=== PATIENT | male | born 1935 | race African-American/Black ===

== ENCOUNTER 2016-06-30 15:06 | Inpatient (IN) | payer OTHER, MEDICARE ==
[2016-06-30] VITALS (8 sets, daily range): BP systolic 126–168; BP diastolic 70–99; PULSE 84–116; RESP 16–22; TEMP 96.2–98.1; O2SAT 87–100
[~2016-06-30] VITALS: Ht 177.8 cm; Wt 57.0 kg
[~2016-06-30 15:06] MED LIST: ALBU8I INH; AZIT250T43 PO; BRIM0.2S LEFT EYE; CARV12.52 PO; GLUCTAB PO; LISI-360 PO; PRAV10 PO; PRED20 PO; PROVENTIL HFA INH; TIMO1SOL6 LEFT EYE; XALA0.00 LEFT EYE
[2016-06-30] MEDS ORDERED: SODIUM CHLORIDE 0.9% FLUSH 5 ML FLUSH IVF PRN ×2 (15:30→19:00)
[2016-06-30] MEDS ORDERED: methylPREDNISolone SOD SUCC 125 MG/2 ML VIAL IVP ONE (15:30)
--- NOTE | 2016-06-30 15:32 | PD ---
HPI . Shortness of breath Chief Complaint: Respiratory Distress Time Seen by Provider: 15:22 Travel History International Travel<30 days: No Contact w/Intl Traveler<30days: No History of Present Illness HPI The patient presents with increasing shortness of breath over the course of the last couple days. He has been using his Combivent inhaler and a nebulizer machine with no relief of his symptoms. He states he has been prescribed prednisone in the past but is not currently taking it. He admits that he has had swelling of his ankles. He is not running fever. He does not have a productive cough. He has not been having chest pain. [facility] Past Medical History COPD: Yes Diabetes: Yes Musculoskeletal: Yes (HERNIATED DISK L1) Past Surgical History Cholecystectomy: Yes Tonsillectomy: Yes Social History Alcohol Use: No Tobacco Use: Yes (1/2-1 PPD) Substance Use: No Allergies-Medications (Allergen,Severity, Reaction): Uncoded Allergies: POISON FANNY (Allergy, Mild, 02/07/08) Reported Meds & Prescriptions Reported Meds & Active Scripts Active Reported Xalatan Opth Drops (Latanoprost) 0.005% Drops 1 Drop LEFT EYE HS Timolol Opth Drops 0.5 % Soln 1 Drop LEFT EYE DAILY Metformin (Metformin HCl) 1,000 Mg Tab 1,000 Mg PO TID With a meal Lisinopril 10 Mg Tab 10 Mg PO DAILY Carvedilol 12.5 Mg Tab 12.5 Mg PO BID Combigan Opth Drops (Brimonidine-Timolol Opth Drops) 0.2-0.5% Soln 1 Drop LEFT EYE DAILY Proair Hfa 8.5 GM Inh (Albuterol Sulfate) 90 Mcg/Act Aer 2 Puff INH Q6H PRN 108 mcg/actuation Review of Systems Except as stated in HPI: all other systems reviewed are Neg General / Constitutional: No: Fever, Chills Cardiovascular: No: Chest Pain or Discomfort Respiratory: Positive: Shortness of Breath Musculoskeletal: Positive: Edema Physical Exam Narrative GENERAL: Pleasant, elderly man who is in obvious respiratory distress. SKIN: Warm and dry. HEAD: Atraumatic. Normocephalic. EYES: Pupils equal and round. ENT: No nasal bleeding or discharge. Mucous membranes pink and moist. NECK: Trachea midline. Positive JVD. CARDIOVASCULAR: Regular rate and rhythm. Heart sounds are normal. RESPIRATORY: He has retractions and use of accessory muscles. His lungs sound clear but diminished throughout. GASTROINTESTINAL: Abdomen soft, non-tender, nondistended. MUSCULOSKELETAL: No obvious deformities. 4+ pretibial pitting edema NEUROLOGICAL: Awake and alert. No obvious cranial nerve deficits. Motor grossly within normal limits. Normal speech. PSYCHIATRIC: Appropriate mood and affect; insight and judgment normal. Data Data Last Documented VS Vital Signs Date Time Temp Pulse Resp B/P Pulse Ox O2 Delivery O2 Flow Rate FiO2 06/30/16 16:36 102 16 126/80 99 Nasal Cannula 2 06/30/16 15:08 98.1 Orders Complete Blood Count With Diff (06/30/16 15:28) Comprehensive Metabolic Panel (06/30/16 15:28) B-Type Natriuretic Peptide (06/30/16 15:28) Ckmb (Isoenzyme) Profile (06/30/16 15:28) Troponin I (06/30/16 15:28) Iv Access Insert/Monitor (06/30/16 15:28) Electrocardiogram (06/30/16 15:28) Ecg Monitoring (06/30/16 15:28) Oximetry (06/30/16 15:28) Oxygen Administration (06/30/16 15:28) Chest, Single Ap (06/30/16 15:28) Sodium Chloride 0.9% Flush (Ns Flush) (06/30/16 15:30) Methylprednisolone So Succ Inj (Solumedr (06/30/16 15:30) Albuterol-Ipratropium Neb (Duoneb Neb) (06/30/16 15:30) CKMB (06/30/16 15:50) CKMB% (06/30/16 15:50) Furosemide Inj (Lasix Inj) (06/30/16 17:30) Aspirin (Aspirin) (06/30/16 17:30) Nitroglycerin 2% Oint (Nitroglycerin 2% (06/30/16 17:30) Labs Laboratory Tests Test 06/30/16 15:50 White Blood Count 9.1 TH/MM3 Red Blood Count 4.81 MIL/MM3 Hemoglobin 14.9 GM/DL Hematocrit 45.3 % Mean Corpuscular Volume 94.3 FL Mean Corpuscular Hemoglobin 30.9 PG Mean Corpuscular Hemoglobin 32.8 % Concent Red Cell Distribution Width 14.4 % Platelet Count 115 TH/MM3 Mean Platelet Volume 11.4 FL Neutrophils (%) (Auto) 67.7 % Lymphocytes (%) (Auto) 24.6 % Monocytes (%) (Auto) 6.2 % Eosinophils (%) (Auto) 1.0 % Basophils (%) (Auto) 0.5 % Neutrophils # (Auto) 6.2 TH/MM3 Lymphocytes # (Auto) 2.2 TH/MM3 Monocytes # (Auto) 0.6 TH/MM3 Eosinophils # (Auto) 0.1 TH/MM3 Basophils # (Auto) 0.0 TH/MM3 CBC Comment DIFF FINAL Differential Comment Sodium Level 140 MEQ/L Potassium Level 4.3 MEQ/L Chloride Level 102 MEQ/L Carbon Dioxide Level 31.0 MEQ/L Anion Gap 7 MEQ/L Blood Urea Nitrogen 23 MG/DL Creatinine 1.25 MG/DL Estimat Glomerular Filtration 68 ML/MIN Rate Random Glucose 270 MG/DL Calcium Level 9.0 MG/DL Total Bilirubin 0.3 MG/DL Aspartate Amino Transf 35 U/L (AST/SGOT) Alanine Aminotransferase 61 U/L (ALT/SGPT) Alkaline Phosphatase 118 U/L Total Creatine Kinase 106 U/L Creatine Kinase MB 4.1 NG/ML Troponin I 0.03 NG/ML B-Type Natriuretic Peptide 846 PG/ML Total Protein 6.3 GM/DL Albumin 3.0 GM/DL [facility] Medical Decision Making Medical Screen Exam Complete: Yes Emergency Medical Condition: Yes Medical Record Reviewed: Yes Interpretation(s) EKG shows a sinus rhythm. He has some flattening of the T waves in the inferior leads and some nonspecific STT wave changes in the anterior leads. These changes are new compared to his most recent EKG which was done 2 years ago. Differential Diagnosis Differential diagnosis of dyspnea includes but is not limited to congestive heart failure, pneumonia, wheezing, pneumothorax, pulmonary embolism Narrative Course Patient presents for treatment of increasing dyspnea over the course the last couple days. I will give him steroids and nebs while awaiting his evaluation for CHF. Chest x-ray shows changes compatible with COPD but no infiltrate. The chest x- ray was independently viewed by me. CBC & BMP Diagram 06/30/16 15:50 Initial cardiac enzymes are negative. BNP is >800. 5:27 PM Patient is on oxygen as sats are in the upper 90s. However, he is still having retractions and use of accessory muscles. He now has audible rales. Critical Care Narrative Aggregate critical care time was 45 minutes. Time to perform other separately billable procedures was not included in the critical care time. My time did not include minutes spent treating any other patients simultaneously or on activities that did not directly contribute to the patient's treatment. The services I provided to this patient were to treat and/or prevent clinically significant deterioration due to respiratory distress and hypoxia. I provided critical care services requiring my management, as noted below: Chart data review, documentation time, medication orders and management, vital sign assessments/reviewing monitor data, ordering and reviewing lab tests, ordering and interpreting/reviewing x-rays and diagnostic studies, care of the patient and discussion of the patient with the admitting physicians Physician Communication Physician Communication Dr. Nuñez will admit. Diagnosis Primary Impression: Dyspnea Qualified Code: R06.00 - Dyspnea, unspecified type Additional Impression: CHF (congestive heart failure) Qualified Code: I50.9 - Acute congestive heart failure, unspecified congestive heart failure type Admitting Information Admitting Physician Requests: Admit Condition: Zuleyka Dickerson MD Jun 30, 2016 15:32
[2016-06-30 16:01] LABS: AUTOMATED NEUTROPHIL # 6.2 TH/MM3 (1.8-7.7); BASOPHIL % 0.5 % (0.0-2.0); EOSINOPHIL # 0.1 TH/MM3 (0-0.4); HEMATOCRIT 45.3 % (39.0-51.0); HEMO FLAGS DIFF FINAL; LYMPH % 24.6 % (9.0-44.0); LYMPHOCYTE # 2.2 TH/MM3 (1.0-4.8); MEAN CELL VOLUME 94.3 FL (80.0-100.0); MEAN CORPUSCULAR HEMOGLOBIN 30.9 PG (27.0-34.0); MEAN CORPUSCULAR HGB CONC 32.8 % (32.0-36.0); MONO % 6.2 % (0.0-8.0); NEUT % 67.7 % (16.0-70.0); PLATELET COUNT 115 TH/MM3 (150-450); RED BLOOD COUNT 4.81 MIL/MM3 (4.50-5.90); RED CELL DISTRIBUTION WIDTH 14.4 % (11.6-17.2); WHITE BLOOD COUNT 9.1 TH/MM3 (4.0-11.0)
[2016-06-30] MEDS: RESP: ALBUTEROL 2.5 MG/IPRATROPIUM 0.5 MG NEB (SCH) INH (16:14)
--- NOTE | 2016-06-30 16:15 | RADRPT ---
EXAM DATE/TIME: 06/30/2016 13:38 [place] COMPARISON: No previous studies available for comparison. INDICATIONS : Patient has been short of breath for two days. MEDICAL HISTORY : Hypertension. Diabetes mellitus type II. SURGICAL HISTORY : None. ENCOUNTER: Initial ACUITY: 2 days PAIN SCORE: 0/10 LOCATION: Bilateral chest FINDINGS: The heart and mediastinal structures are normal. the pulmonary vascular pattern is also normal. The lungs are clear. CONCLUSION: No acute cardiopulmonary disease. Josh Zaman MD on June 30, 2016 at 16:10 Board Certified Radiologist. This report was verified electronically.
[2016-06-30 16:50] LABS: ALT (GPT) 61 U/L (12-78); ANION GAP 7 MEQ/L (5-15); AST (GOT) 35 U/L (15-37); BLOOD UREA NITROGEN 23 MG/DL (7-18); CHLORIDE 102 MEQ/L (98-107); GLOMERULAR FILTRATION RATE 68 ML/MIN (>89); POTASSIUM 4.3 MEQ/L (3.5-5.1); SODIUM (NA) 140 MEQ/L (136-145)
[2016-06-30 16:56] LABS: ALKALINE PHOSPHATASE 118 U/L (45-117); CREATINE KINASE 106 U/L (39-308); TOTAL BILIRUBIN ADULT 0.3 MG/DL (0.2-1.0)
[2016-06-30] MEDS ORDERED: TIMO0.5S30 LEFT EYE (16:56)
[2016-06-30] MEDS ORDERED: METF1000 PO (16:56)
[2016-06-30] MEDS ORDERED: ALBUAER3 INH (16:56)
[2016-06-30] MEDS ORDERED: LATA.005%O LEFT EYE (16:56)
[2016-06-30] MEDS ORDERED: CARV12.52 PO (16:56)
[2016-06-30] MEDS ORDERED: COMB0.2S LEFT EYE (16:56)
[2016-06-30] MEDS ORDERED: LISI10TA3 PO (16:56)
[2016-06-30 16:59] LABS: CKMB 4.1 NG/ML (0.5-3.6)
[2016-06-30] MEDS ORDERED: ASPIRIN 325 MG TAB PO ONE (17:30)
[2016-06-30] MEDS ORDERED: FUROSEMIDE 40 MG/4 ML VIAL IV PUSH ONE (17:30)
[2016-06-30] MEDS ORDERED: NITROGLYCERIN 2% OINT 1 GM PACKET TOPICAL ONE (17:30)
[2016-06-30] MEDS ORDERED: GLUCAGON 1 MG/ML VIAL OTHER PRN (19:00)
[2016-06-30] MEDS ORDERED: DOCUSATE SODIUM 50 MG/SENNA 8.6 MG TAB PO PRN (19:00)
[2016-06-30] MEDS ORDERED: DEXTROSE 50% IN WATER 50 ML VIAL(D50) IV PUSH PRN (19:00)
[2016-06-30] MEDS ORDERED: RESP: ALBUTEROL 2.5 MG/IPRATROPIUM 0.5 MG NEB (PRN) NEB (19:00)
[2016-06-30] MEDS ORDERED: TEMAZEPAM 15 MG CAP PO PRN (19:00)
[2016-06-30] MEDS ORDERED: ONDANSETRON HCL 4 MG/2 ML VIAL IV PRN (19:00)
[2016-06-30] MEDS ORDERED: ACETAMINOPHEN 325 MG TAB PO PRN (19:00)
--- NOTE | 2016-06-30 19:11 | HHI.HP ---
[facility] Service [facility] Primary Care Physician Manjeet Harrell MD Admission Diagnosis CHF Diagnoses: (1) New onset of congestive heart failure Chief Complaint: Shortness of breath Travel History International Travel<30 Days: No Contact w/Intl Traveler <30 Da: No Traveled to Known Affected Are: No History of Present Illness 89 year-old -[place] male with a history of diabetes type 2, hypertension presented to the ED for evaluation of difficulty breathing for the past 1 week. Patient states he was seen by his PCP and was prescribed nebulizer however continue to have severe shortness of breath despite treatment. mariah camacho also reported bilateral lower extremity edema He denies any chest pain. He has no febrile episode. Abnormal lab includes BNP of 800+. Denies any GI bleed. Review of Systems Other 12 systems reviewed and are negative except for the one mentioned in history of present illness Past Family Social History Past Medical History Diabetes type 2 Hypertension Glaucoma Past Surgical History Cholecystectomy: Yes Tonsillectomy: Yes Reported Medications Xalatan Opth Drops (Latanoprost) 0.005% Drops 1 Drop LEFT EYE HS Timolol Opth Drops 0.5 % Soln 1 Drop LEFT EYE DAILY Metformin (Metformin HCl) 1,000 Mg Tab 1,000 Mg PO TID With a meal Lisinopril 10 Mg Tab 10 Mg PO DAILY Carvedilol 12.5 Mg Tab 12.5 Mg PO BID Combigan Opth Drops (Brimonidine-Timolol Opth Drops) 0.2-0.5% Soln 1 Drop LEFT EYE DAILY Proair Hfa 8.5 GM Inh (Albuterol Sulfate) 90 Mcg/Act Aer 2 Puff INH Q6H PRN 108 mcg/actuation Allergies: Uncoded Allergies: POISON FANNY (Allergy, Mild, 02/07/08) Family History father had esophageal cancer Social History Alcohol Use: No Tobacco Use: Yes 4 cigarette per day Substance Use: No Physical Exam Vital Signs Vital Signs Date Time Temp Pulse Resp B/P Pulse Ox O2 Delivery O2 Flow Rate FiO2 06/30/16 18:00 95 16 136/82 100 Nasal Cannula 2 06/30/16 16:36 102 16 126/80 99 Nasal Cannula 2 06/30/16 16:14 98 Nasal Cannula 1.00 06/30/16 15:34 99 Nasal Cannula 2 06/30/16 15:08 98.1 116 22 156/70 87 Room Air Physical Exam GENERAL: This is a well-nourished, well-developed patient, in no apparent distress. SKIN: No rashes, ecchymoses or lesions. Cool and dry. HEAD: Atraumatic. Normocephalic. No temporal or scalp tenderness. EYES: Pupils equal round and reactive. Extraocular motions intact. No scleral icterus. No injection or drainage. ENT: Nose without bleeding, purulent drainage or septal hematoma. Throat without erythema, tonsillar hypertrophy or exudate. Uvula midline. Airway patent. NECK: Trachea midline. No JVD or lymphadenopathy. Supple, nontender, no meningeal signs. CARDIOVASCULAR: Regular rate and rhythm without murmurs, gallops, or rubs. RESPIRATORY: Clear to auscultation. Breath sounds equal bilaterally. No wheezes , rales, or rhonchi. GASTROINTESTINAL: Abdomen soft, non-tender, nondistended. No hepato-splenomegaly , or palpable masses. No guarding. MUSCULOSKELETAL: Extremities without clubbing, cyanosis, or edema. No joint tenderness, effusion, or edema noted. No calf tenderness. Negative Homans sign bilaterally. NEUROLOGICAL: Awake and alert. Cranial nerves II through XII intact. Motor and sensory grossly within normal limits. Five out of 5 muscle strength in all muscle groups. Normal speech. Laboratory Laboratory Tests Test 06/30/16 15:50 White Blood Count 9.1 Red Blood Count 4.81 Hemoglobin 14.9 Hematocrit 45.3 Mean Corpuscular Volume 94.3 Mean Corpuscular Hemoglobin 30.9 Mean Corpuscular Hemoglobin 32.8 Concent Red Cell Distribution Width 14.4 Platelet Count 115 Mean Platelet Volume 11.4 Neutrophils (%) (Auto) 67.7 Lymphocytes (%) (Auto) 24.6 Monocytes (%) (Auto) 6.2 Eosinophils (%) (Auto) 1.0 Basophils (%) (Auto) 0.5 Neutrophils # (Auto) 6.2 Lymphocytes # (Auto) 2.2 Monocytes # (Auto) 0.6 Eosinophils # (Auto) 0.1 Basophils # (Auto) 0.0 CBC Comment DIFF FINAL Differential Comment Sodium Level 140 Potassium Level 4.3 Chloride Level 102 Carbon Dioxide Level 31.0 Anion Gap 7 Blood Urea Nitrogen 23 Creatinine 1.25 Estimat Glomerular Filtration 68 Rate Random Glucose 270 Calcium Level 9.0 Total Bilirubin 0.3 Aspartate Amino Transf 35 (AST/SGOT) Alanine Aminotransferase 61 (ALT/SGPT) Alkaline Phosphatase 118 Total Creatine Kinase 106 Creatine Kinase MB 4.1 Troponin I 0.03 B-Type Natriuretic Peptide 846 Total Protein 6.3 Albumin 3.0 Result Diagram: 06/30/16 1550 06/30/16 1550 Imaging Last Impressions Chest X-Ray 06/30/16 1528 Signed Impressions: Service Date/Time: June 13:38 - CONCLUSION: No acute cardiopulmonary disease. Josh Zaman MD Assessment and Plan Problem List: (1) New onset of congestive heart failure ICD Code: I50.9 Status: Acute Assessment and Plan 81-year-old male with 1-New onset congestive heart failure: Chest x-ray noted and review without any cardiac pulmonary disease. BNP 800+; no initial cardiac enzymes negative with rule out ACS per protocol with serial cardiac enzyme. Status post Lasix 40 mg IV and 1, continue with Lasix 40 mg IV twice a day. CHF indication and strict I 's and O's. Resume RAJAT inhibitor. Check 2-D echo and consult cardiology. 2-Diabetes type 2: Check hemoglobin A1c, start insulin sliding scale and resume metformin. 3-Hypertension: Resume outpatient medications including Coreg and lisinopril. 5-DVT prophylaxis: Bilateral SCDs Code Status Full code Discussed Condition With Patient, sister, ED physician Physician Certification 2 Midnight Certification Type: Admission for Inpatient Services Order for Inpatient Services The services are ordered in accordance with Medicare regulations or non- Medicare payer requirements, as applicable. In the case of services not specified as inpatient-only, they are appropriately provided as inpatient services in accordance with the 2-midnight benchmark. Estimated LOS (days): 2 days is the estimated time the patient will need to remain in the hospital, assuming treatment plan goals are met and no additional complications. Post-Hospital Plan: Not yet determined Butch Nuñez MD Jun 30, 2016 19:11
[2016-06-30] MEDS: LATANOPROST 0.005% OPHT SOLN 2.5 ML BTL LEFT EYE SCH (21:00)
[2016-06-30] MEDS: POTASSIUM CHLORIDE 20 MEQ CONTROLLED RELEASE TAB PO SCH (22:22)
[2016-06-30] MEDS: SODIUM CHLORIDE 0.9% FLUSH 5 ML FLUSH IVF SCH (22:23)
[2016-06-30] MEDS: CARVEDILOL 12.5 MG TAB PO SCH (22:23)
[2016-06-30] MEDS: INSULIN ASPART SUPPLEMENTAL SCALE SQ SCH (23:24)
[2016-06-30 23:55] LABS: MAGNESIUM 1.5 MG/DL (1.5-2.5)
[2016-07-01] VITALS (9 sets, daily range): BP systolic 121–162; BP diastolic 73–93; PULSE 78–97; RESP 17–20; TEMP 96–97.1; O2SAT 92–96
[2016-07-01] MEDS: INSULIN ASPART SUPPLEMENTAL SCALE SQ SCH ×4 (06:18→21:00)
[2016-07-01 07:14] LABS: BICARBONATE 34.4 MEQ/L (21.0-32.0); POTASSIUM 4.5 MEQ/L (3.5-5.1)
[2016-07-01] MEDS ORDERED: PT OWN (Brimonidine-Timolol Opth Drops (Combigan Opth Drops) LEFT EYE SCH (09:00)
[2016-07-01] MEDS ORDERED: INFLUENZA VIRUS VACCINE (QUADRIVALENT) 0.5 ML SYR IM ONE (09:00)
[2016-07-01] MEDS ORDERED: PNEUMOCOCCAL POLYVALENT INJ 25 MCG/0.5 ML SYR IM ONE (09:00)
[2016-07-01] MEDS: FUROSEMIDE 40 MG/4 ML VIAL IVP SCH ×2 (09:15→17:40)
[2016-07-01] MEDS: LISINOPRIL 10 MG TAB PO SCH (09:16)
[2016-07-01] MEDS: CARVEDILOL 12.5 MG TAB PO SCH ×2 (09:16→21:58)
[2016-07-01] MEDS: POTASSIUM CHLORIDE 20 MEQ CONTROLLED RELEASE TAB PO SCH ×2 (09:16→21:59)
[2016-07-01] MEDS: metFORMIN HCL 500 MG TAB PO SCH ×3 (09:16→17:40)
[2016-07-01] MEDS: SODIUM CHLORIDE 0.9% FLUSH 5 ML FLUSH IVF SCH ×2 (09:17→22:01)
[2016-07-01] MEDS: TIMOLOL MALEATE 0.5% OPHT SOLN 5 ML BTL LEFT EYE SCH (12:08)
--- NOTE | 2016-07-01 12:51 | MB ---
cc: [facility] DATE OF CONSULTATION: 07/01/2016 DATE OF : 1935 REASON FOR CONSULTATION Heart failure. HISTORY OF PRESENT ILLNESS 81-year-old male with past medical history significant for diabetes, hypertension, active smoker and COPD that presented to the emergency department for evaluation of difficulty breathing / shortness of breath for the last week. The patient reports that he has been having difficulty breathing for the last week he kit went into the PCP which prescribed nebulizers however breathing treatments however, he has shortness of breath has not gotten better. He reports a associated leg edema with a shortness of breath. He denies chest pain , palpitations, syncope, noncompliant with medications chest trauma, PND, orthopnea. Cuff has an angled and. He was in the emergency department, his BNP was elevated and then a. Cardiology has been consulted for heart failure and evaluation. REVIEW OF SYSTEMS Review of systems negative except for what is mentioned in HPI. PAST MEDICAL HISTORY 1. Diabetes type 2. 2. Hypertension. 3. Glaucoma. 4. Chronic obstructive pulmonary disease. ALLERGIES NO KNOWN DRUG ALLERGIES MEDICATIONS: 1. IV diuresis 2. Albuterol inhalers 3. Coreg 12.5 mg p.o. b.i.d. 4. lisinopril 10 mg p.o. daily 5. metformin 1000 mg p.o. t.i.d. SOCIAL HISTORY: Social history is an active smoker. Denies illicit drug use or alcohol use. FAMILY HISTORY Noncontributory PHYSICAL EXAMINATION: VITAL SIGNS: Temperature 97.1, respiratory rate 18, a pulse of 84, blood pressure 151/83. O2 96% RA. IN GENERAL: He is awake, alert, no acute distress. NECK: There is positive JVD, no carotid bruits. HEART: Regular rate and rhythm. No murmurs, rubs or gallops appreciated. LUNGS: Clear to auscultation. ABDOMEN: The abdomen is soft, nontender, nondistended. Positive bowel sounds. EXTREMITIES: No cyanosis or edema. Pulses throughout. DATA CBC hemoglobin 14, hematocrit of 45, platelet count 116. Chemistries sodium 140 , potassium 4.5, BUN be BUN 21, creatinine 0.92, troponin's 0.03 0.02 and 0.02. BNP 846 Chest x-ray No acute cardiopulmonary process. Electrocardiogram: Sinus tachycardia with nonspecific ST changes. Echocardiogram preliminary reading by me done at bedside shows a preserved venous systolic function. However, he has severe RV right ventricular dysfunction and severe TR. No previous echocardiogram to compare. ASSESSMENT/PLAN 81-year-old male with cardiac risk factors that include smoking, hypertension, diabetes, that he was admitted to the hospital with acute congestive heart failure exacerbation versus chronic obstructive pulmonary disease exacerbation. Currently he remains febrile hemodynamically stable and reports feeling better from the shortness of breath and the leg edema. No ischemic cardiac workup recording in the system. The patient's symptoms may represent angina equivalent. Schedule for ischemic evaluation with Lexiscan stress test to further risk stratify his coronary artery disease, and continue IV diuresis as well as Coreg, and the RAJAT inhibitors. RECOMMENDATIONS 1. Lexiscan stress test. 2. Continue Coreg and RAJAT inhibitors. 3. Continue IV diuresis. 4. A strict in and outputs and weight daily. 5. Incentive spirometry. 6. Continued COPD treatment per primary team. 7. Consider a CTA of the chest to rule out pulmonary emboli. Thank you for the opportunity to brought this patient further therapy to be determined. MD BHAVYA Telles/shanice /10:51 AM /12:18 PM DAMIEN
--- NOTE | 2016-07-01 13:55 | HHI.PR ---
Subjective Remarks Follow-up new onset CHF 07/01/16-patient seen and examined; reports significant improvement or shortness of breath. Plan for part one of Lexiscan stress test today Objective Vitals Vital Signs Date Time Temp Pulse Resp B/P Pulse Ox O2 Delivery O2 Flow Rate FiO2 07/01/16 13:12 97.0 86 20 149/93 96 07/01/16 07:54 97.1 84 18 151/83 96 07/01/16 04:00 96.0 92 17 136/87 93 07/01/16 00:16 92 07/01/16 00:00 96.9 97 17 121/73 94 06/30/16 21:20 98 06/30/16 20:00 96.2 84 17 168/87 92 06/30/16 19:55 100 Nasal Cannula 3.00 06/30/16 19:12 97 18 135/99 92 Nasal Cannula 3 06/30/16 18:00 95 16 136/82 100 Nasal Cannula 2 06/30/16 16:36 102 16 126/80 99 Nasal Cannula 2 06/30/16 16:14 98 Nasal Cannula 1.00 06/30/16 15:34 99 Nasal Cannula 2 06/30/16 15:08 98.1 116 22 156/70 87 Room Air I/O 06/30/16 06/30/16 06/30/16 07/01/16 07/01/16 07/01/16 07:00 15:00 23:00 07:00 15:00 23:00 Intake Total 240 ml 240 ml 720 ml Output Total 675 ml 950 ml Balance 240 ml -435 ml -230 ml Intake Oral 240 ml 240 ml 720 ml Output Urine Total 675 ml 950 ml # Voids 1 Result Diagram: 06/30/16 1550 07/01/16 0625 Imaging Last Impressions Chest X-Ray 06/30/16 1528 Signed Impressions: Service Date/Time: June 13:38 - CONCLUSION: No acute cardiopulmonary disease. Josh Zaman MD Objective Remarks GENERAL: NAD SKIN: Warm and dry. HEAD: Normocephalic. EYES: No scleral icterus. No injection or drainage. NECK: Supple, trachea midline. No JVD or lymphadenopathy. CARDIOVASCULAR: Regular rate and rhythm without murmurs, gallops, or rubs. RESPIRATORY: Breath sounds equal bilaterally. No accessory muscle use. GASTROINTESTINAL: Abdomen soft, non-tender, nondistended. MUSCULOSKELETAL: No cyanosis, or edema. BACK: Nontender without obvious deformity. No CVA tenderness. A/P Problem List: (1) New onset of congestive heart failure ICD Code: I50.9 Status: Acute Assessment and Plan 81-year-old male with 1-New onset congestive heart failure: Chest x-ray without any cardiac pulmonary disease. BNP 800+; ACS ruled out per protocol with serial cardiac enzyme. Status post Lasix 40 mg IV and 1, continue with Lasix 40 mg IV twice a day and RAJAT inhibitor as well as beta bradley. Plan for Lexiscan stress test today. 2- D echo pending and appreciate input from cardiology. CHF indication and strict I's and O's. May consider a CTA to rule out PE 2-Diabetes type 2: hemoglobin A1c pending, continue insulin sliding scale and metformin. 3-Hypertension: Continue outpatient medications including Coreg and lisinopril. 5-DVT prophylaxis: Bilateral SCDs Butch Nuñez MD Jul 01, 2016 13:55
--- NOTE | 2016-07-01 14:58 | EC ---
Study Study Date:07/01/2016 STUDY CONCLUSIONS SUMMARY - Left ventricle: The cavity size was normal. Wall thickness was normal. Systolic function was normal. The estimated ejection fraction was in the range of 60% to 65%. Wall motion was normal; there were no regional wall motion abnormalities. - Right ventricle: The cavity size was dilated. Wall thickness was normal. Systolic function was reduced. - Tricuspid valve: Severe regurgitation. - Pulmonary arteries: PA peak pressure: 93mm Hg (S). If LV function is below 40, please consider prescribing an ACEI or ARB or document rationale for non-use. PROCEDURE DATA STUDY STATUS: Elective. Procedure: Transthoracic echocardiography. Image quality was good. Scanning was performed from the parasternal, apical, and subcostal acoustic windows. Study completion: The patient tolerated the procedure well. Transthoracic echocardiography. M-mode, complete 2D, complete spectral Doppler, and color Doppler. Patient status: Inpatient. CARDIAC ANATOMY LEFT VENTRICLE: The cavity size was normal. Wall thickness was normal. Systolic function was normal. The estimated ejection fraction was in the range of 60% to 65%. Wall motion was normal; there were no regional wall motion abnormalities. AORTIC VALVE: Trileaflet; normal thickness leaflets. Doppler: Transvalvular velocity was within the normal range. There was no stenosis. No regurgitation. AORTA: Aortic root: The aortic root was normal in size. MITRAL VALVE: Structurally normal valve. Doppler: Transvalvular velocity was within the normal range. There was no evidence for stenosis. No regurgitation. Mean gradient: 2mm Hg (D). LEFT ATRIUM: The atrium was normal in size. RIGHT VENTRICLE: The cavity size was dilated. Wall thickness was normal. Systolic function was reduced. PULMONIC VALVE: Doppler: Transvalvular velocity was within the normal range. There was no evidence for stenosis. No regurgitation. TRICUSPID VALVE: Structurally normal valve. Doppler: Transvalvular velocity was within the normal range. Severe regurgitation. PULMONARY ARTERY: The main pulmonary artery was normal-sized. Systolic pressure was within the normal range. RIGHT ATRIUM: The atrium was normal in size. PERICARDIUM: There was no pericardial effusion. SYSTEMIC VEINS: Inferior vena cava: The vessel was normal in size. BASIC MEASUREMENTS ADULT Normal Left ventricle LV internal dimension, ED, chordal level, *33.2 mm 43-52 PLAX LV internal dimension, ES, chordal level, *22.8 mm 23-38 PLAX Fractional shortening, chordal level, PLAX 31 % >29 LV posterior wall thickness, ED 8.74 mm IVS/LVPW ratio, ED 1.21 <1.3 Ventricular septum Septal thickness, ED 10.6 mm Aortic valve Leaflet separation 17 mm 15-26 Left atrium Anterior-posterior dimension 20 mm Right ventricle RV internal dimension, ED, PLAX 29.5 mm 19-38 BASIC MEASUREMENTS ADULT Normal Aortic valve Leaflet separation 17 mm 15-26 Aorta Root diameter, ED 30 mm 20-37 DOPPLER MEASUREMENTS ADULT Normal Main pulmonary artery Pressure, S *93 mm Hg =30 Aortic valve VTI, S 19.8 cm Mitral valve Peak E-wave velocity 35.6 cm/s Peak A-wave velocity 96.5 cm/s Mean velocity, D 57.1 cm/s Mean gradient, D 2 mm Hg Peak E/A ratio 0.4 Tricuspid valve Regurgitant peak velocity 309 cm/s Peak RV-RA gradient, S 38 mm Hg Maximal regurgitant velocity 309 cm/s Systemic veins Estimated CVP 15 mm Hg Right ventricle RV pressure, S *93 mm Hg <30 LEGEND: Mean values are shown as u=mean value. Asterisk (*) peck values outside specified normal range. Prepared and signed by Remy Sood [id number]
[2016-07-01] MEDS ORDERED: MAGNESIUM SULFATE 1 GM PREMIX 100 ML IV ONE (18:00)
[2016-07-01] MEDS: LATANOPROST 0.005% OPHT SOLN 2.5 ML BTL LEFT EYE SCH (22:07)
[2016-07-02] VITALS: BP 133/86; PULSE 84; RESP 16; TEMP 96.5; O2SAT 93
[2016-07-02 04:00] VITALS: BP 145/96; PULSE 89; RESP 17; TEMP 96.6; O2SAT 94
[2016-07-02] MEDS: INSULIN ASPART SUPPLEMENTAL SCALE SQ SCH ×3 (06:11→16:16)
[2016-07-02 06:57] LABS: BICARBONATE 36.9 MEQ/L (21.0-32.0); MAGNESIUM 1.5 MG/DL (1.5-2.5); POTASSIUM 3.9 MEQ/L (3.5-5.1)
[2016-07-02 08:05] VITALS: PULSE 80
[2016-07-02 08:39] VITALS: BP 155/87; PULSE 83; RESP 18; TEMP 97.6; O2SAT 92
--- NOTE | 2016-07-02 08:40 | EKG ---
Date Performed: 06/30/2016 Time Performed: 16:00:29 PTAGE: 81 years EKG: SHORT [place] INTERVAL NONSPECIFIC ST & T-WAVE CHANGE ABNORMAL RHYTHM ECG PREVIOUS TRACING : 07/12/2014 17.28 Compared to previous tracing, no significant change. DOCTOR: Nolberto Esqueda Interpretating Date/Time 07/02/2016 08:40:00
[2016-07-02] MEDS ORDERED: REGADENOSON INJ 0.4 MG/5 ML SYR ONE (08:52)
[2016-07-02] MEDS: metFORMIN HCL 500 MG TAB PO SCH ×3 (09:32→17:16)
[2016-07-02] MEDS: CARVEDILOL 12.5 MG TAB PO SCH (09:32)
[2016-07-02] MEDS: POTASSIUM CHLORIDE 20 MEQ CONTROLLED RELEASE TAB PO SCH (09:32)
[2016-07-02] MEDS: LISINOPRIL 10 MG TAB PO SCH (09:32)
[2016-07-02] MEDS: FUROSEMIDE 40 MG/4 ML VIAL IVP SCH ×2 (09:32→17:15)
[2016-07-02] MEDS: TIMOLOL MALEATE 0.5% OPHT SOLN 5 ML BTL LEFT EYE SCH (09:33)
[2016-07-02] MEDS: SODIUM CHLORIDE 0.9% FLUSH 5 ML FLUSH IVF SCH (09:33)
--- NOTE | 2016-07-02 09:43 | RADRPT ---
EXAM DATE/TIME: 07/01/2016 13:56 [facility] COMPARISON: No previous studies available for comparison. INDICATIONS : Coronary atherosclerosis. Congestive heart failure. DOSE: 30.1 mCi Tc99m Myoview at stress. 30.1 mCi Tc99m Myoview at rest. 0.4 mg Lexiscan STRESS SYMPTOMS: Shortness of breath and abdominal pain. EJECTION FRACTION: 65% MEDICAL HISTORY : Diabetes mellitus type 2. Hypertension. Chronic obstructive pulmonary disease. SURGICAL HISTORY : Cholecystectomy. ENCOUNTER: Initial ACUITY: 1 day PAIN SCALE: 2/10 LOCATION: Bilateral chest TECHNIQUE: The patient underwent pharmacologic stress with infusion of prescribed dose. Continuous ECG tracing was monitored during stress. Gated SPECT imaging was performed after stress and conventional SPECT i maging was performed at rest. The examination was performed on a SPECT/CT scanner, both attenuation and non-corrected datasets were reviewed. FINDINGS: DISTRIBUTION: The maximum perfused segment at stress is in the lateral wall. PERFUSION STUDY: No reversible perfusion defects. GATED STUDY: There is intact wall motion and thickening without hypokinetic or dyskinetic segments. CONCLUSION: 1. No reversible perfusion defects to suggest ischemia. 2. Normal ejection fraction. RISK CATEGORY: Low (<1% Annual Mortality Rate) Butch Naqvi MD on July 02, 2016 at 9:36 Board Certified Radiologist. This report was verified electronically.
--- NOTE | 2016-07-02 11:14 | HHI.PR ---
Subjective Remarks Follow-up new onset CHF 07/01/16-patient seen and examined; reports significant improvement or shortness of breath. Plan for part one of Lexiscan stress test today 07/02/16-patient seen and examined, completed Lexiscan stress test without any evidence of ischemia. Denies any chest pain or shortness of breath. Objective Vitals Vital Signs Date Time Temp Pulse Resp B/P Pulse Ox O2 Delivery O2 Flow Rate FiO2 07/02/16 08:39 97.6 83 18 155/87 92 07/02/16 08:05 80 07/02/16 04:00 96.6 89 17 145/96 94 07/02/16 00:00 96.5 84 16 133/86 93 07/01/16 21:15 87 07/01/16 20:00 96.8 95 17 162/88 94 07/01/16 16:00 96.9 78 20 152/87 96 07/01/16 13:12 97.0 86 20 149/93 96 I/O 07/01/16 07/01/16 07/01/16 07/02/16 07/02/16 07/02/16 07:00 15:00 23:00 07:00 15:00 23:00 Intake Total 240 ml 1080 ml 600 ml Output Total 675 ml 1150 ml 1000 ml Balance -435 ml -70 ml -400 ml Intake Oral 240 ml 1080 ml 600 ml Output Urine Total 675 ml 1150 ml 1000 ml # Voids 2 2 # Bowel Movements 0 1 Result Diagram: 06/30/16 1550 07/02/16 0607 Imaging Last Impressions Myocardial Perfusion Scan Nuc Med 07/01/16 0000 Signed Impressions: Service Date/Time: Friday, July 01, 2016 13:56 - CONCLUSION: 1. No reversible perfusion defects to suggest ischemia. 2. Normal ejection fraction. RISK CATEGORY: Low (<1%% Annual Mortality Rate) Butch Naqvi MD Chest X-Ray 06/30/16 1528 Signed Impressions: Service Date/Time: June 13:38 - CONCLUSION: No acute cardiopulmonary disease. Josh Zaman MD Objective Remarks GENERAL: NAD SKIN: Warm and dry. HEAD: Normocephalic. EYES: No scleral icterus. No injection or drainage. NECK: Supple, trachea midline. No JVD or lymphadenopathy. CARDIOVASCULAR: Regular rate and rhythm without murmurs, gallops, or rubs. RESPIRATORY: Breath sounds equal bilaterally. No accessory muscle use. GASTROINTESTINAL: Abdomen soft, non-tender, nondistended. MUSCULOSKELETAL: No cyanosis, or edema. BACK: Nontender without obvious deformity. No CVA tenderness. Procedures None A/P Problem List: (1) Diastolic CHF, acute ICD Code: I50.31 Status: Acute (2) New onset of congestive heart failure ICD Code: I50.9 Status: Acute (3) Diabetes mellitus ICD Code: E11.9 Status: Chronic (4) Benign hypertension ICD Code: I10 Status: Chronic Assessment and Plan 81-year-old male with 1-New onset diastolic congestive heart failure: Chest x-ray without any cardiac pulmonary disease. BNP 800+; ACS ruled out per protocol with serial cardiac enzyme. Status post Lasix 40 mg IV and 1, continue with Lasix 40 mg IV twice a day and RAJAT inhibitor as well as beta bradley. Completed Lexiscan stress test today and without any evidence of ischemia. 2-D echo with EF of 60-65% and appreciate input from cardiology. CHF indication and strict I's and O's. 2-Diabetes type 2: hemoglobin A1c pending, continue insulin sliding scale and metformin. 3-Hypertension: Continue outpatient medications including Coreg and lisinopril. 5-DVT prophylaxis: Bilateral SCDs Butch Nuñez MD Jul 02, 2016 11:14
[2016-07-02] MEDS ORDERED: FURO1TAB60 PO (11:16)
[2016-07-02] MEDS ORDERED: POTA20TA5 PO (11:16)
--- NOTE | 2016-07-02 11:20 | HHI.DS ---
Discharge Summary Admission Date Jun 30, 2016 at 17:40 Discharge Date: Jul 02, 2016 Admitting Diagnosis CHF (1) Diastolic CHF, acute ICD Code: I50.31 Diagnosis: Principal (2) New onset of congestive heart failure ICD Code: I50.9 Diagnosis: Principal (3) Diabetes mellitus ICD Code: E11.9 (4) Benign hypertension ICD Code: I10 (5) Glaucoma ICD Code: H40.9 Procedures None Brief History - From Admission 81 year-old -[place] male with a history of diabetes type 2, hypertension presented to the ED for evaluation of difficulty breathing for the past 1 week. Patient states he was seen by his PCP and was prescribed nebulizer however continue to have severe shortness of breath despite treatment. h e also reported bilateral lower extremity edema He denies any chest pain. He has no febrile episode. Abnormal lab includes BNP of 800+. Denies any GI bleed. CBC/BMP: 06/30/16 1550 07/02/16 0607 Significant Findings Laboratory Tests Test 06/30/16 07/01/16 07/02/16 15:50 06:25 06:07 Platelet Count 115 TH/MM3 (150-450) Mean Platelet Volume 11.4 FL (7.0-11.0) Blood Urea Nitrogen 23 MG/DL (7-18) 21 MG/DL (7-18) 27 MG/DL (7-18) Estimat Glomerular Filtration 68 ML/MIN (>89) 80 ML/MIN (>89) Rate Random Glucose 270 MG/DL 155 MG/DL 144 MG/DL (74-106) (74-106) (74-106) Alkaline Phosphatase 118 U/L (45-117) Creatine Kinase MB 4.1 NG/ML (0.5-3.6) B-Type Natriuretic Peptide 846 PG/ML 887 PG/ML (0-100) (0-100) Total Protein 6.3 GM/DL (6.4-8.2) Albumin 3.0 GM/DL (3.4-5.0) Carbon Dioxide Level 34.4 MEQ/L 36.9 MEQ/L (21.0-32.0) (21.0-32.0) Chloride Level 96 MEQ/L (98-107) Imaging Last Impressions Myocardial Perfusion Scan Nuc Med 07/01/16 0000 Signed Impressions: Service Date/Time: Friday, July 01, 2016 13:56 - CONCLUSION: 1. No reversible perfusion defects to suggest ischemia. 2. Normal ejection fraction. RISK CATEGORY: Low (<1%% Annual Mortality Rate) Butch Naqvi MD Chest X-Ray 06/30/16 1528 Signed Impressions: Service Date/Time: June 13:38 - CONCLUSION: No acute cardiopulmonary disease. Josh Zaman MD PE at Discharge GENERAL: NAD SKIN: Warm and dry. HEAD: Normocephalic. EYES: No scleral icterus. No injection or drainage. NECK: Supple, trachea midline. No JVD or lymphadenopathy. CARDIOVASCULAR: Regular rate and rhythm without murmurs, gallops, or rubs. RESPIRATORY: Breath sounds equal bilaterally. No accessory muscle use. GASTROINTESTINAL: Abdomen soft, non-tender, nondistended. MUSCULOSKELETAL: No cyanosis, or edema. BACK: Nontender without obvious deformity. No CVA tenderness. Hospital Course Patient was admitted and diagnosed with new onset congestive heart failure for which ACS was ruled out per protocol and patient starting on IV diuretics and continue on Coreg and Lasix. Cardiology was consulted and he underwent a Lexiscan stress test with did no reveal any ischemia. 2-D echo was obtained with EF of 60-65%. Patient was continued on his regimen for diabetes as well as hypertension. DVT prophylaxis was provided. Vitals remained stable and prior to discharge patient condition improved. Pt Condition on Discharge: Stable Discharge Disposition: Discharge Home Discharge Time: <= 30 minutes Discharge Instructions DIET: Follow Instructions for: Diabetic Diet Activities you can perform: Regular-No Restrictions Follow up Referrals: Cardiology PCP Follow-up - 1 Week New Medications: Furosemide (Lasix) 40 Mg Tab 40 MG PO BID Prevent Heart Failure #60 Ref 0 TAB Potassium Chloride Microencaps (Potassium Chloride Microencaps) 20 Meq Tab 20 MEQ PO BID Electrolyte Replacement #60 TAB Continued Medications: Albuterol 8.5 GM Inh (Proair Hfa 8.5 GM Inh) 90 Mcg/Act Aer 2 PUFF INH Q6H 108 mcg/actuation PRN SHORTNESS OF BREATH #1 Ref 0 INHALER Brimonidine-Timolol Opth Drops (Combigan Opth Drops) 0.2-0.5% Soln 1 DROP LEFT EYE DAILY Glaucoma Ref 0 BOTTLE Carvedilol (Carvedilol) 12.5 Mg Tab 12.5 MG PO BID #60 Ref 0 TAB Latanoprost Opth Drops (Xalatan Opth Drops) 0.005% Drops 1 DROP LEFT EYE HS Glaucoma #2.5 Ref 0 ML Lisinopril (Lisinopril) 10 Mg Tab 10 MG PO DAILY #30 Ref 0 TAB Metformin (Metformin) 1,000 Mg Tab 1000 MG PO TID With a meal Blood Sugar Management #30 Ref 0 TAB Timolol Opth Drops (Timolol Opth Drops) 0.5 % Soln 1 DROP LEFT EYE DAILY Glaucoma #1 Ref 0 BOTTLE Buthc Nuñez MD Jul 02, 2016 11:20
[2016-07-02 12:22] VITALS: BP 168/84; PULSE 79; RESP 21; TEMP 96.1; O2SAT 92
--- NOTE | 2016-07-02 13:36 | HHI.FF ---
Face to Face Verification Diagnosis: (1) New onset of congestive heart failure (2) Diastolic CHF, acute (3) Diabetes mellitus (4) Glaucoma Physical Therapy Order: Evaluate and Treat I have seen patient Vincent Lori Garibay Jr on 07/02/16. My clinical findings support the need for the requested home health care services because: Patient has SOB Deconditioned w/ increased weakness I certify that my clinical findings support that this patient is homebound because: Poor cardiac reserve Butch Nuñez MD Jul 02, 2016 13:36
--- NOTE | 2016-07-02 15:40 | HHI.FF ---
Face to Face Verification Diagnosis: (1) Diastolic CHF, acute (2) New onset of congestive heart failure (3) Diabetes mellitus (4) Benign hypertension Physical Therapy Order: Evaluate and Treat Home Health Nursing Order: Signs/symptoms of disease process Medication education-adverse effect I have seen patient Vincent Lori Garibay Jr on 07/02/16. My clinical findings support the need for the requested home health care services because: Patient has SOB Deconditioned w/ increased weakness I certify that my clinical findings support that this patient is homebound because: Poor cardiac reserve Butch Nuñez MD Jul 02, 2016 15:40
[2016-07-02 16:27] VITALS: BP 152/90; PULSE 80; RESP 18; TEMP 97.1; O2SAT 93
== END 2016-07-02 18:35 | disposition home or self-care (01) | DRG 293 ==
LOC: NEPE 15:06 → NEDA 17:40 → HOCB 20:42
PROVIDERS: ADMIT Hospitalist; ATTEND Hospitalist
DX: I50.31 Acute diastolic (congestive) heart failure (principal); J44.9 Chronic obstructive pulmonary disease, unspecified; E11.9 Type 2 diabetes mellitus without complications; I10 Essential (primary) hypertension; H40.9 Unspecified glaucoma; I25.10 Atherosclerotic heart disease of native coronary artery without angina pectoris; R09.02 Hypoxemia; Z72.0 Tobacco use; Z79.4 Long term (current) use of insulin
CPT/HCPCS: 71010; 78452; 80048; 80053; 82550; 82552; 82948; 83735; 83880; 84484; 85025; 93005; 93017; 93306; 94640; 94664; 96374; A9502; J1815; J1940; J2785; J2930; J3475

== ENCOUNTER 2016-07-04 11:11 | Emergency (ER) | payer MEDICARE, OTHER ==
[~2016-07-04] VITALS: Ht 177.8 cm; Wt 55.0 kg
[~2016-07-04 11:11] MED LIST changes: -ALBU8I INH; +ALBUAER3 INH; -AZIT250T43 PO; -BRIM0.2S LEFT EYE; +COMB0.2S LEFT EYE; +FURO1TAB60 PO; -GLUCTAB PO; +LATA.005%O LEFT EYE; -LISI-360 PO; +LISI10TA3 PO; +METF1000 PO; +POTA20TA5 PO; -PRAV10 PO; -PRED20 PO; -PROVENTIL HFA INH; +TIMO0.5S30 LEFT EYE; -TIMO1SOL6 LEFT EYE; -XALA0.00 LEFT EYE
[2016-07-04 11:14] VITALS: BP 104/58; PULSE 98; RESP 14; TEMP 97.8; O2SAT 96
--- NOTE | 2016-07-04 11:43 | PD ---
HPI Chief Complaint: General Weakness Time Seen by Provider: 11:38 Travel History International Travel<30 days: No Contact w/Intl Traveler<30days: No Traveled to known affect area: No History of Present Illness HPI Patient is a 81-year-old male presenting to the emergency department for evaluation of weakness. Patient states he was discharged 2 days ago, he was prescribed new medications which he has been compliant with. He reports increased fatigue since that time. Patient is accompanied by his family who states he is not drinking enough fluids, patient states that he was told not to drink too much water because he was retaining fluid. He denies any chest pain, shortness of breath, abdominal pain, headache, dizziness. PFSH Past Medical History Heart Rhythm Problems: No High Cholesterol: Yes Chest Pain: No Congestive Heart Failure: Yes COPD: Yes Cerebrovascular Accident: No Diabetes: Yes Musculoskeletal: Yes (HERNIATED DISK L1) Neurologic: No Respiratory: Yes Migraines: No Seizures: No Past Surgical History Cholecystectomy: Yes Eye Surgery: Yes (CATARACT AND GLAUCOMA SURGERY) Oral Surgery: Yes (TONSILLECTOMY A CHILD) Tonsillectomy: Yes Social History Alcohol Use: No Tobacco Use: Yes (05/25 ppd) Substance Use: No Allergies-Medications (Allergen,Severity, Reaction): Uncoded Allergies: POISON FANNY (Allergy, Mild, RASH, 07/04/16) Reported Meds & Prescriptions Reported Meds & Active Scripts Active Lasix (Furosemide) 40 Mg Tab 40 Mg PO BID Potassium Chloride Microencaps 20 Meq Tab 20 Meq PO BID Reported Xalatan Opth Drops (Latanoprost) 0.005% Drops 1 Drop LEFT EYE HS Timolol Opth Drops 0.5 % Soln 1 Drop LEFT EYE DAILY Metformin (Metformin HCl) 1,000 Mg Tab 1,000 Mg PO TID With a meal Lisinopril 10 Mg Tab 10 Mg PO DAILY Carvedilol 12.5 Mg Tab 12.5 Mg PO BID Combigan Opth Drops (Brimonidine-Timolol Opth Drops) 0.2-0.5% Soln 1 Drop LEFT EYE DAILY Proair Hfa 8.5 GM Inh (Albuterol Sulfate) 90 Mcg/Act Aer 2 Puff INH Q6H PRN 108 mcg/actuation Review of Systems Except as stated in HPI: all other systems reviewed are Neg General / Constitutional: Positive: Other (fatigue), No: Fever, Chills HENT: No: Headaches, Lightheadedness Cardiovascular: No: Chest Pain or Discomfort Respiratory: No: Shortness of Breath Gastrointestinal: Positive: Other (poor oral intake of fluids), No: Nausea, Abdominal Pain Neurologic: Positive: Weakness, No: Dizziness, Syncope, Change in Mentation Physical Exam Narrative GENERAL: Thin, well-developed, alert gentleman. Resting comfortably in no acute distress. Family at bedside. SKIN: Warm and dry. HEAD: Atraumatic. Normocephalic. EYES: Pupils equal and round. No scleral icterus. No injection or drainage. ENT: No nasal bleeding or discharge. Mucous membranes pink and moist. NECK: Trachea midline. No JVD. CARDIOVASCULAR: Regular rate and rhythm. No murmur appreciated. RESPIRATORY: No accessory muscle use. Clear to auscultation. Breath sounds equal bilaterally. GASTROINTESTINAL: Abdomen soft, non-tender, nondistended. Hepatic and splenic margins not palpable. MUSCULOSKELETAL: No obvious deformities. No clubbing. No cyanosis. No edema. RONNA hose on. NEUROLOGICAL: Awake and alert. No obvious cranial nerve deficits. Motor grossly within normal limits. Normal speech. PSYCHIATRIC: Appropriate mood and affect; insight and judgment normal. Data Data Last Documented VS Vital Signs Date Time Temp Pulse Resp B/P Pulse Ox O2 Delivery O2 Flow Rate FiO2 07/04/16 15:00 98 14 116/66 96 Room Air 07/04/16 11:14 97.8 Orders Complete Blood Count With Diff (07/04/16 11:30) Comprehensive Metabolic Panel (07/04/16 11:30) B-Type Natriuretic Peptide (07/04/16 11:30) Magnesium (Mg) (07/04/16 11:30) Ckmb (Isoenzyme) Profile (07/04/16 11:30) Troponin I (07/04/16 11:30) Electrocardiogram (07/04/16 11:30) Chest, Single Ap (07/04/16 12:23) Ecg Monitoring (07/04/16 12:23) Iv Access Insert/Monitor (07/04/16 12:23) Oximetry (07/04/16 12:23) Orthostatic Vital Signs (07/04/16 12:23) Sodium Chlor 0.9% 250 Ml Inj (Ns 250 Ml (07/04/16 12:30) CKMB (07/04/16 12:30) CKMB% (07/04/16 12:30) Labs Laboratory Tests Test 07/04/16 12:30 White Blood Count 9.7 TH/MM3 Red Blood Count 5.36 MIL/MM3 Hemoglobin 16.4 GM/DL Hematocrit 50.0 % Mean Corpuscular Volume 93.2 FL Mean Corpuscular Hemoglobin 30.7 PG Mean Corpuscular Hemoglobin 32.9 % Concent Red Cell Distribution Width 14.3 % Platelet Count 129 TH/MM3 Mean Platelet Volume 10.9 FL Neutrophils (%) (Auto) 68.6 % Lymphocytes (%) (Auto) 23.6 % Monocytes (%) (Auto) 6.5 % Eosinophils (%) (Auto) 0.8 % Basophils (%) (Auto) 0.5 % Neutrophils # (Auto) 6.7 TH/MM3 Lymphocytes # (Auto) 2.3 TH/MM3 Monocytes # (Auto) 0.6 TH/MM3 Eosinophils # (Auto) 0.1 TH/MM3 Basophils # (Auto) 0.0 TH/MM3 CBC Comment DIFF FINAL Differential Comment Sodium Level 135 MEQ/L Potassium Level 5.1 MEQ/L Chloride Level 95 MEQ/L Carbon Dioxide Level 35.4 MEQ/L Anion Gap 5 MEQ/L Blood Urea Nitrogen 48 MG/DL Creatinine 2.05 MG/DL Estimat Glomerular Filtration 38 ML/MIN Rate Random Glucose 211 MG/DL Calcium Level 9.4 MG/DL Magnesium Level 1.8 MG/DL Total Bilirubin 0.7 MG/DL Aspartate Amino Transf 21 U/L (AST/SGOT) Alanine Aminotransferase 39 U/L (ALT/SGPT) Alkaline Phosphatase 101 U/L Total Creatine Kinase 119 U/L Creatine Kinase MB 1.7 NG/ML Troponin I LESS THAN 0.02 NG/ML B-Type Natriuretic Peptide 134 PG/ML Total Protein 7.2 GM/DL Albumin 3.5 GM/DL MDM Medical Decision Making Medical Screen Exam Complete: Yes Emergency Medical Condition: Yes Medical Record Reviewed: Yes Interpretation(s) Vital Signs Date Time Temp Pulse Resp B/P Pulse Ox O2 Delivery O2 Flow Rate FiO2 07/04/16 11:14 97.8 98 14 104/58 96 Room Air Differential Diagnosis Medication side effects versus electrolyte abnormality versus congestive heart failure versus deconditioning secondary to bedrest versus hypotension versus other Narrative Course Patient is a 81-year-old male presenting to the emergency department for evaluation of generalized weakness, fatigue. Patient is hypotensive currently. Patient was discharged from the hospital on 07/02/16, he was diagnosed with new onset congestive heart failure. Last recorded vital signs prior to discharge shows a systolic blood pressure of 159. During that stay he had a negative stress test, his ejection fraction was between 60 and 65%. He was placed on carvedilol and Lasix. Patient reports compliance with these medications. Family states he does not drink enough water, stating that he may drink one 16 ounce bottle daily. Fatigue may be secondary to dehydration, deconditioning. Labs and EKG ordered. Care of patient will be transferred to physician at medical pod when bed is available. Loan Huerta Jul 04, 2016 11:43
--- NOTE | 2016-07-04 12:17 | PD ---
Physical Exam Date Seen by Provider: Jul 04, 2016 Time Seen by Provider: 12:15 Narrative 81-year-old male recently discharged 2 days ago for CHF flare. Patient was seen in triage, please see previous note by Loan العلي. Patient has generalized weakness and low blood pressure. Labs have been ordered. Patient is medically stable. Data Data Last Documented VS Vital Signs Date Time Temp Pulse Resp B/P Pulse Ox O2 Delivery O2 Flow Rate FiO2 07/04/16 13:30 100 14 110/66 96 Room Air 07/04/16 11:14 97.8 Orders Complete Blood Count With Diff (07/04/16 11:30) Comprehensive Metabolic Panel (07/04/16 11:30) B-Type Natriuretic Peptide (07/04/16 11:30) Magnesium (Mg) (07/04/16 11:30) Ckmb (Isoenzyme) Profile (07/04/16 11:30) Troponin I (07/04/16 11:30) Urinalysis - C+S If Indicated (07/04/16 11:30) Electrocardiogram (07/04/16 11:30) Chest, Single Ap (07/04/16 12:23) Ecg Monitoring (07/04/16 12:23) Iv Access Insert/Monitor (07/04/16 12:23) Oximetry (07/04/16 12:23) Orthostatic Vital Signs (07/04/16 12:23) Sodium Chlor 0.9% 250 Ml Inj (Ns 250 Ml (07/04/16 12:30) CKMB (07/04/16 12:30) CKMB% (07/04/16 12:30) Labs Laboratory Tests Test 07/04/16 12:30 White Blood Count 9.7 TH/MM3 Red Blood Count 5.36 MIL/MM3 Hemoglobin 16.4 GM/DL Hematocrit 50.0 % Mean Corpuscular Volume 93.2 FL Mean Corpuscular Hemoglobin 30.7 PG Mean Corpuscular Hemoglobin 32.9 % Concent Red Cell Distribution Width 14.3 % Platelet Count 129 TH/MM3 Mean Platelet Volume 10.9 FL Neutrophils (%) (Auto) 68.6 % Lymphocytes (%) (Auto) 23.6 % Monocytes (%) (Auto) 6.5 % Eosinophils (%) (Auto) 0.8 % Basophils (%) (Auto) 0.5 % Neutrophils # (Auto) 6.7 TH/MM3 Lymphocytes # (Auto) 2.3 TH/MM3 Monocytes # (Auto) 0.6 TH/MM3 Eosinophils # (Auto) 0.1 TH/MM3 Basophils # (Auto) 0.0 TH/MM3 CBC Comment DIFF FINAL Differential Comment Sodium Level 135 MEQ/L Potassium Level 5.1 MEQ/L Chloride Level 95 MEQ/L Carbon Dioxide Level 35.4 MEQ/L Anion Gap 5 MEQ/L Blood Urea Nitrogen 48 MG/DL Creatinine 2.05 MG/DL Estimat Glomerular Filtration 38 ML/MIN Rate Random Glucose 211 MG/DL Calcium Level 9.4 MG/DL Magnesium Level 1.8 MG/DL Total Bilirubin 0.7 MG/DL Aspartate Amino Transf 21 U/L (AST/SGOT) Alanine Aminotransferase 39 U/L (ALT/SGPT) Alkaline Phosphatase 101 U/L Total Creatine Kinase 119 U/L Creatine Kinase MB 1.7 NG/ML Troponin I LESS THAN 0.02 NG/ML B-Type Natriuretic Peptide 134 PG/ML Total Protein 7.2 GM/DL Albumin 3.5 GM/DL [facility] Medical Record Reviewed: Yes Supervised Visit with IYNG: Yes Differential Diagnosis Generalized weakness. Electrolytes imbalance. Dehydration. Hypertension. Cardiac syndrome. Narrative Course Patient is medically stable at time of exam. Labs are pending including a BNP. Troponin, CMP, CBC and comp has a metabolic panel. As well as urinalysis. EKG is ordered As well. EKG shows sinus rhythm with nonspecific ST changes. No acute findings are noted. This was reviewed with Dr. Avila. Chest x-ray shows no acute findings per radiologist. CBC is unremarkable. Troponin is less than 0.02. ProBNP is 134. CMP shows a sodium 135, chloride of 95, carbon dioxide of 35.4, BUN of 48, creatinine of 2.05 which is significantly elevated from 02 July, which showed a creatinine of 1.08. 1350 hrs. call was placed to the hospitalist for admission for acute renal failure. Call was returned by Dr. Matos, who care for the patient when he was admitted earlier last week. The patient was discussed and he felt that he could go home with hydration at home and decrease in his diuretics. Decrease diuretic to once daily. Patient is to drink up to 2 L of fluids per day as discussed. Low-salt diet as discussed. Diabetic diet as discussed. Patient is to follow with his primary care physician on Monday for reevaluation to ensure improvement. Patient can return to emergency department at any time for worsening symptoms as needed. Diagnosis Primary Impression: Acute renal failure Qualified Code: N17.9 - Acute renal failure, unspecified acute renal failure type Additional Impressions: CHF (congestive heart failure) Qualified Code: I50.9 - Congestive heart failure, unspecified congestive heart failure chronicity, unspecified congestive heart failure type Diabetes mellitus Qualified Code: E11.9 - Type 2 diabetes mellitus without complication, unspecified keno terminal operator insulin use status Referrals: Primary Care Physician 2 days Patient Instructions: 2 Gram Sodium Diet (DC), Dehydration (ED), General Instructions Additional Instruction: Decrease diuretic to once daily. Patient is to drink up to 2 L of fluids per day as discussed. Low-salt diet as discussed. Diabetic diet as discussed. Patient is to follow with his primary care physician on Monday for reevaluation to ensure improvement. Patient can return to emergency department at any time for worsening symptoms as needed. Med/Other Pt SpecificInfo: Existing Med Changed Disposition: DISCHARGE HOME Condition: Stable Pablo Wylie Jul 04, 2016 12:17
[2016-07-04 12:28] VITALS: RESP 18; O2SAT 94
[2016-07-04 12:30] VITALS: BP 115/72; PULSE 100; RESP 14; O2SAT 96
[2016-07-04] MEDS ORDERED: SODIUM CHLOR 0.9% 250 ML INJ 250 ML IV ONE (12:30)
[2016-07-04 12:45] LABS: AUTOMATED NEUTROPHIL # 6.7 TH/MM3 (1.8-7.7); BASOPHIL % 0.5 % (0.0-2.0); EOSINOPHIL # 0.1 TH/MM3 (0-0.4); EOSINOPHIL % 0.8 % (0.0-4.0); HEMO FLAGS DIFF FINAL; LYMPH % 23.6 % (9.0-44.0); LYMPHOCYTE # 2.3 TH/MM3 (1.0-4.8); MEAN CELL VOLUME 93.2 FL (80.0-100.0); MEAN CORPUSCULAR HEMOGLOBIN 30.7 PG (27.0-34.0); MEAN CORPUSCULAR HGB CONC 32.9 % (32.0-36.0); MONO % 6.5 % (0.0-8.0); NEUT % 68.6 % (16.0-70.0); PLATELET COUNT 129 TH/MM3 (150-450); RED BLOOD COUNT 5.36 MIL/MM3 (4.50-5.90); RED CELL DISTRIBUTION WIDTH 14.3 % (11.6-17.2); WHITE BLOOD COUNT 9.7 TH/MM3 (4.0-11.0)
--- NOTE | 2016-07-04 12:52 | RADRPT ---
EXAM DATE/TIME: 07/04/2016 12:28 [facility] COMPARISON: CHEST SINGLE AP, June 30, 2016, 13:38. INDICATIONS : Shortness of breath. MEDICAL HISTORY : Hypertension. Diabetes mellitus type II. SURGICAL HISTORY : None. ENCOUNTER: Initial ACUITY: 2 days PAIN SCORE: 0/10 LOCATION: Bilateral chest FINDINGS: A single view of the chest demonstrates the lungs to be symmetrically aerated without evidence of mas s, infiltrate or effusion. The cardiomediastinal contours are unremarkable. Osseous structures are intact. CONCLUSION: No acute disease. Abel Guadarrama MD FACR on July 04, 2016 at 12:49 Board Certified Radiologist. This report was verified electronically.
[2016-07-04 13:12] LABS: ALKALINE PHOSPHATASE 101 U/L (45-117); ALT (GPT) 39 U/L (12-78); ANION GAP 5 MEQ/L (5-15); AST (GOT) 21 U/L (15-37); BICARBONATE 35.4 MEQ/L (21.0-32.0); BLOOD UREA NITROGEN 48 MG/DL (7-18); CHLORIDE 95 MEQ/L (98-107); CREATINE KINASE 119 U/L (39-308); GLOMERULAR FILTRATION RATE 38 ML/MIN (>89); MAGNESIUM 1.8 MG/DL (1.5-2.5); POTASSIUM 5.1 MEQ/L (3.5-5.1); SODIUM (NA) 135 MEQ/L (136-145); TOTAL BILIRUBIN ADULT 0.7 MG/DL (0.2-1.0)
--- NOTE | 2016-07-04 13:23 | PD ---
Physical Exam Date Seen by Provider: Jul 04, 2016 Narrative Patient is here for weakness following treatment for CHF. He denies any difficulty breathing. He reports insomnia while in the hospital and believes that he may be fatigued from insomnia. Data Data Last Documented VS Vital Signs Date Time Temp Pulse Resp B/P Pulse Ox O2 Delivery O2 Flow Rate FiO2 07/04/16 12:30 100 14 115/72 96 Room Air 07/04/16 11:14 97.8 Orders Complete Blood Count With Diff (07/04/16 11:30) Comprehensive Metabolic Panel (07/04/16 11:30) B-Type Natriuretic Peptide (07/04/16 11:30) Magnesium (Mg) (07/04/16 11:30) Ckmb (Isoenzyme) Profile (07/04/16 11:30) Troponin I (07/04/16 11:30) Urinalysis - C+S If Indicated (07/04/16 11:30) Electrocardiogram (07/04/16 11:30) Chest, Single Ap (07/04/16 12:23) Ecg Monitoring (07/04/16 12:23) Iv Access Insert/Monitor (07/04/16 12:23) Oximetry (07/04/16 12:23) Orthostatic Vital Signs (07/04/16 12:23) Sodium Chlor 0.9% 250 Ml Inj (Ns 250 Ml (07/04/16 12:30) CKMB (07/04/16 12:30) CKMB% (07/04/16 12:30) Labs Laboratory Tests Test 07/04/16 12:30 White Blood Count 9.7 TH/MM3 Red Blood Count 5.36 MIL/MM3 Hemoglobin 16.4 GM/DL Hematocrit 50.0 % Mean Corpuscular Volume 93.2 FL Mean Corpuscular Hemoglobin 30.7 PG Mean Corpuscular Hemoglobin 32.9 % Concent Red Cell Distribution Width 14.3 % Platelet Count 129 TH/MM3 Mean Platelet Volume 10.9 FL Neutrophils (%) (Auto) 68.6 % Lymphocytes (%) (Auto) 23.6 % Monocytes (%) (Auto) 6.5 % Eosinophils (%) (Auto) 0.8 % Basophils (%) (Auto) 0.5 % Neutrophils # (Auto) 6.7 TH/MM3 Lymphocytes # (Auto) 2.3 TH/MM3 Monocytes # (Auto) 0.6 TH/MM3 Eosinophils # (Auto) 0.1 TH/MM3 Basophils # (Auto) 0.0 TH/MM3 CBC Comment DIFF FINAL Differential Comment Sodium Level 135 MEQ/L Potassium Level 5.1 MEQ/L Chloride Level 95 MEQ/L Carbon Dioxide Level 35.4 MEQ/L Anion Gap 5 MEQ/L Blood Urea Nitrogen 48 MG/DL Creatinine 2.05 MG/DL Estimat Glomerular Filtration 38 ML/MIN Rate Random Glucose 211 MG/DL Calcium Level 9.4 MG/DL Magnesium Level 1.8 MG/DL Total Bilirubin 0.7 MG/DL Aspartate Amino Transf 21 U/L (AST/SGOT) Alanine Aminotransferase 39 U/L (ALT/SGPT) Alkaline Phosphatase 101 U/L Total Creatine Kinase 119 U/L Troponin I LESS THAN 0.02 NG/ML B-Type Natriuretic Peptide 134 PG/ML Total Protein 7.2 GM/DL Albumin 3.5 GM/DL MDM Supervised Visit with YING: Yes Narrative Course I, Dr. Avila, have reviewed the advance practice practitioner's documentation and am in agreement, met with the patient face to face, made the diagnosis, and the medical decision making was done by me. *My assessment and Findings: Patient is sitting on the stretcher conversing with me without any respiratory distress. Zuleyka Avila MD Jul 04, 2016 13:23
[2016-07-04 13:30] VITALS: BP 110/66; PULSE 100; RESP 14; O2SAT 96
[2016-07-04 13:32] LABS: CKMB 1.7 NG/ML (0.5-3.6)
[2016-07-04 15:00] VITALS: BP 116/66; PULSE 98; RESP 14; O2SAT 96
--- NOTE | 2016-07-05 09:19 | EKG ---
Date Performed: 07/04/2016 Time Performed: 12:29:31 PTAGE: 81 years EKG: Sinus rhythm RIGHT ATRIAL ENLARGEMENT BORDERLINE RIGHT AXIS DEVIATION NONSPECIFIC ST & T-WAVE ABNORMALITY ABNORMA L ECG PREVIOUS TRACING : 06/30/2016 16.00 Compared to prior tracing no significant change DOCTOR: Logan Seaman Interpretating Date/Time 07/05/2016 09:18:16
== END 2016-07-04 15:42 | disposition home or self-care (01) ==
LOC: NEPA 11:11
DX: N17.9 Acute kidney failure, unspecified (principal); I50.9 Heart failure, unspecified; R53.83 Other fatigue; I95.9 Hypotension, unspecified; R94.31 Abnormal electrocardiogram [ECG] [EKG]; E11.9 Type 2 diabetes mellitus without complications; E78.00 Pure hypercholesterolemia, unspecified; Z72.0 Tobacco use; Z79.84 Long term (current) use of oral hypoglycemic drugs; Z86.79 Personal history of other diseases of the circulatory system; Z87.09 Personal history of other diseases of the respiratory system; Z87.39 Personal history of other diseases of the musculoskeletal system and connective tissue
CPT/HCPCS: 71010; 80053; 82550; 82552; 83735; 83880; 84484; 85025; 93005; 96360; 99285; J7050